=== PATIENT | female | born 1965 | race Caucasian/White ===

== ENCOUNTER 2022-01-07 11:15 | Outpatient (CLI) | payer BC, SELFPAY ==
--- NOTE | 2022-01-07 11:30 | CRLHL7_ITS ---
For Patients: As a result of the Century Cures Act, medical imaging exams and procedure reports are released immediately into your electronic medical record. You may view this report before your referring provider. If you have questions, please contact your health care provider. BILATERAL MAMMOGRAM WITH COMPUTER-AIDED DETECTION AND TOMOSYNTHESIS TECHNIQUE: CC and MLO views were obtained. These mammographic images have been obtained using full-field digital technique. These mammographic images were interpreted with the benefit of computer-aided detection. Breast Tomosynthesis was used in this interpretation. COMPARISON FILM: 09/26/2020 (3D), 01/04/2018 (2D), 11/14/2016 (2D). FINDINGS: There are scattered areas of fibroglandular density IMPRESSION: There is no radiographic evidence for malignancy. ASSESSMENT: BI-RADS Category 1: Negative RECOMMENDATION: Routine screening mammogram in 1 year. A lay language report of this examination will be provided to the patient. Heri Pal M.D. Diagnostic Radiologist [email or web address] GAYLA/jai Transcribed: 3:03 p.m. IRMA/Dictated by: Heri Pal MD @ 01/07/2022 3:05:00 PM (Electronically Signed)
== END 2022-01-07 11:16 | disposition home or self-care (01) ==
LOC: MAMMO 11:16
PROVIDERS: PCP Family Medicine; Visit Provider Family Medicine
DX: Z12.31 Encounter for screening mammogram for malignant neoplasm of breast (principal)
CPT/HCPCS: 77063; 77067

== ENCOUNTER 2022-12-20 12:39 | Outpatient (CLI) | payer BC, SELFPAY | END 2022-12-20 12:40 | disposition home or self-care (01) | LOC: NFLDREF 12-22 06:36 | PROVIDERS: PCP Family Medicine; Referring Provider Family Medicine; Visit Provider Family Medicine | DX: R30.0 Dysuria (principal); N39.0 Urinary tract infection, site not specified; F41.9 Anxiety disorder, unspecified | CPT/HCPCS: 87086 ==

== ENCOUNTER 2023-01-10 14:28 | Outpatient (CLI) | payer BC, SELFPAY | END 2023-01-10 14:29 | disposition home or self-care (01) | LOC: NFLDREF 14:29 | PROVIDERS: PCP Family Medicine; Visit Provider Physician Assistant | DX: Z01.419 Encounter for gynecological examination (general) (routine) without abnormal findings (principal); N94.9 Unspecified condition associated with female genital organs and menstrual cycle; Z12.4 Encounter for screening for malignant neoplasm of cervix | CPT/HCPCS: 87086 ==

== ENCOUNTER 2023-02-14 10:13 | Outpatient (CLI) | payer BC, SELFPAY | END 2023-02-14 10:14 | disposition home or self-care (01) | LOC: LKVREF 10:16 | PROVIDERS: PCP Family Medicine; Visit Provider Family Medicine | DX: Z01.818 Encounter for other preprocedural examination (principal); I26.92 Saddle embolus of pulmonary artery without acute cor pulmonale; I82.409 Acute embolism and thrombosis of unspecified deep veins of unspecified lower extremity | CPT/HCPCS: 80053 ==

== ENCOUNTER 2023-03-09 10:13 | Outpatient (CLI) | payer BC, SELFPAY ==
--- NOTE | 2023-03-09 10:15 | CRLHL7_ITS ---
For Patients: As a result of the Century Cures Act, medical imaging exams and procedure reports are released immediately into your electronic medical record. You may view this report before your referring provider. If you have questions, please contact your health care provider. BILATERAL SCREENING MAMMOGRAM WITH COMPUTER-AIDED DETECTION AND TOMOSYNTHESIS TECHNIQUE: CC and MLO views were obtained. These mammographic images have been obtained using full-field digital technique. These mammographic images were interpreted with the benefit of computer-aided detection. Breast Tomosynthesis was used in this interpretation. COMPARISON FILM: 01/07/22, 10/16/20, 01/04/18. FINDINGS: There are scattered areas of fibroglandular density IMPRESSION: There is no radiographic evidence for malignancy. ASSESSMENT: BI-RADS Category 1: Negative RECOMMENDATION: Routine screening mammogram in 1 year. A lay language report of this examination will be provided to the patient. Heri Pal M.D. Diagnostic Radiologist [email or web address] IRMA/Dictated by: Heri Pal MD @ 03/09/2023 12:21:00 PM (Electronically Signed)
== END 2023-03-09 10:14 | disposition home or self-care (01) ==
LOC: MAMMO 10:14
PROVIDERS: PCP Family Medicine; Visit Provider Family Medicine
DX: Z12.31 Encounter for screening mammogram for malignant neoplasm of breast (principal)
CPT/HCPCS: 77063; 77067

== ENCOUNTER 2024-04-16 14:30 | Outpatient (RCR) | payer BC, SELFPAY | END 2024-08-14 23:59 | disposition home or self-care (01) | PROVIDERS: PCP Family Medicine; Visit Provider Orthopaedic Surgery | DX: M17.12 Unilateral primary osteoarthritis, left knee (principal); Z96.652 Presence of left artificial knee joint; M25.562 Pain in left knee; Z74.09 Other reduced mobility; R53.1 Weakness; R26.9 Unspecified abnormalities of gait and mobility; Z51.89 Encounter for other specified aftercare | CPT/HCPCS: 97016; 97032; 97110; 97140; 97161 ==

== ENCOUNTER 2024-07-24 09:27 | Outpatient (CLI) | payer BC, SELFPAY | END 2024-07-24 09:28 | disposition home or self-care (01) | LOC: MAMMO 09:28 | PROVIDERS: PCP Family Medicine; Visit Provider Family Medicine | DX: Z12.31 Encounter for screening mammogram for malignant neoplasm of breast (principal) | CPT/HCPCS: 77063; 77067 ==

== ENCOUNTER 2024-08-16 08:05 | Outpatient (CLI) | payer BC, SELFPAY | END 2024-08-16 08:06 | disposition home or self-care (01) | LOC: NFLDREF 08-20 06:29 | PROVIDERS: PCP Family Medicine; Referring Provider Family Medicine; Visit Provider Family Medicine | DX: D64.9 Anemia, unspecified (principal); K22.70 Barrett's esophagus without dysplasia; K58.0 Irritable bowel syndrome with diarrhea; R25.2 Cramp and spasm; R53.83 Other fatigue; F41.9 Anxiety disorder, unspecified | CPT/HCPCS: 80053; 80061; 82306; 82607; 82728 ==

== ENCOUNTER 2024-10-22 12:47 | Outpatient (CLI) | payer BC, SELFPAY | END 2024-10-22 12:48 | disposition home or self-care (01) | PROVIDERS: PCP Family Medicine; Visit Provider Family Medicine | DX: D64.9 Anemia, unspecified (principal); Z13.21 Encounter for screening for nutritional disorder | CPT/HCPCS: 82607; 82728 ==

== ENCOUNTER 2024-10-28 19:03 | Emergency (ER) | payer BC, SELFPAY ==
--- OUTSIDE RECORDS SUMMARY | 2024-10-28 19:06 | XMS_ITS | Clinical Summary ---
Author Organization [place] Address [address] [place] [id number] Care Team Providers Care Math And Science Division Chair Name Role Phone Naty, Carmen Gurrola Primary Care Provider Allergies Active Allergy Reactions Criticality Noted Date Comments Erythromycin 11/12/2013 Medications apixaban ANTICOAGULANT (ELIQUIS) 2.5 MG tablet Take 2.5 mg by mouth 2 times daily Active Escitalopram Oxalate (LEXAPRO PO) Take 20 mg by mouth daily Active Pantoprazole Sodium (PROTONIX PO) Take by mouth 2 times daily Active Social History Tobacco Use Types Packs/Day Years Used Date Smoking Tobacco: Never Assessed Tobacco Cessation:Counseling Given: Yes Adolescent Education Answer Date Record ed Getting School Help Needed Not on file 04/01 Comments Unknown Sex and Gender Information Value Date Recorded Sex Assigned at Not on file Legal Sex Female 2:58 AM BUSINESS SEGMENT MANAGER Gender Identity Not on file Sexual Orientation Not on file Last Filed Vital Signs Vital Sign Reading Time Taken Comments Blood Pressure 122/68 10/17/2017 10:10 AM CDT Pulse - - Temperature 36.1 C (97 F) 11/12/2013 9:39 PM CDT Respiratory Rate 20 11/12/2013 9:39 PM CDT Oxygen Saturation 97% 11/13/2013 1:38 AM CDT Inhaled Oxygen Concentration - - Weight 102.1 kg (225 lb) 10/17/2017 10:10 AM CDT Height 167.6 cm (5' 6) 10/17/2017 10:10 AM CDT Body Mass Index 36.32 10/17/2017 10:10 AM CDT Plan of Treatment Not on file Insurance [facility] [place] [address] Care Teams Math And Science Division Chair Relationship Specialty Start Date End Date [address] [address] PCP - General 11/12/13
--- OUTSIDE RECORDS SUMMARY | 2024-10-28 19:06 | XMS_ITS | Clinical Summary ---
Author Organization [facility] Address [address] [place] [address] Care Team Providers Care Stock Plan Administrator Name Role Phone Elsewhere, Pcp Primary Care Provider Unavailabl e Source Comments Patient records contain information from all sites at [facility]. For routine questions regarding patient records, call [phone] during business hours, M-F 8:00 AM - 5:00 PM Central Time. Record requests for emergency care only can be directed to [phone] at any time.[facility] Allergies Active Allergy Reactions Criticality Noted Date Comments Adhesive Tape-Silicones Rash High 05/13/2016 [place] Oil Rash 01/27/2021 Health History questionnaire. Erythromycin Anaphylaxis High 05/13/2016 Ibuprofen GI intolerance High 04/05/2022 Levothyroxine Rash Medium 02/24/2020 Levothyroxine Sodium Hives (Reselect Reaction) High 04/05/2022 Nsaids (Non-Steroidal Anti-Inflammatory Drug) Other (see comments) 05/10/2021 H/o lyle-n-y gastric bypass. AVOID NSAIDs and aspirin due to risk of gastric and/or G-J anastomotic ulcers. If Maye must be on short course of NSAIDs or aspirin, use enteric coated if possible and use PPI // Ingrid Leyva RN, Bariatric Nurse Clinician, [facility] Weight Management 05/10/2021 Ondansetron Headache 05/14/2021 Medications ALPRAZolam (XANAX) 0.5 mg tablet Take 1 tablet by mouth daily as needed for anxiety. Anxiety. 08/17/2017 Active loperamide (IMODIUM A-D) 2 mg capsuleIndicati ons:Irritable Bowel Syndrome With Diarrhea TAKE 4 CAPSULES BY MOUTH DAILY NEEDED FOR DIARRHEA 360 capsule 3 05/04/2020 Active clonazePAM (KlonoPIN) 1 mg tablet Take 1 mg by mouth at bedtime. 04/06/2021 Active amphetamine-dex troamphetamine (ADDERALL XR) 10 mg 24 hr capsule as needed. 04/22/2022 Active Lexapro 20 mg tablet Take 20 mg by mouth at bedtime. 11/24/2022 Active omeprazole (PriLOSEC OTC) [address] tablet Take 20 mg by mouth every evening. 06/02/2023 Active apixaban (Eliquis) 2.5 mg tablet Take 1 tablet (2.5 mg total) by mouth 2 (two) times a day. 180 tablet 02/24/2024 Active acetaminophen (TylenoL) 500 mg tablet Take 2 tablets (1,000 mg total) by mouth every 6 (six) hours as needed for pain. 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 Reduced Eliquis dose to 2.5 mg bid in Jan 2018. Morbid Obesity Body Mass Index 40.0-44.9 Adult 0 03/21/2018 Irritable Bowel Syndrome With Diarrhea 8 Gastro-Esophageal Reflux Dis ease With Esophagitis Without Bleeding 03/20/2018 Overview (03/21/2018): EGD 2017: grade B esophagitis and gastric polyposis (fundic gland polyps without dysplasia) Anxiety 03/20/2018 Insomnia 03/20/2018 Polyp Gastric Personal History 03/20/2018 Overview (03/21/2018): Noted on EGD 2017. Biopsy showed fundic gland polyps without dysplasia. Normal duodenal and random colon biopsies. Anticoagulant Therapy 02/19/2018 Thrombosis Deep Vein Personal History 06/26/2011 Pain Wrist Left Pain Wrist Right Anxiety Generalized Disorder Gastroesophageal Reflux Disease NOS Immunizations Immunization Administration Dates Next Due H1N1 All Forms 06/18/2009 HepA Adult 12/24/1995,07/26/1995 HepB Adult 12/24/1995,08/23/1995,07/26/1995 Influenza Split 03/26/2017,04/26/2016 Influenza TIV (IM) 06/12/2014, 1,03/04/2010,2008 Influenza, Injectable, Quadrivalent 03/23/2019 Influenza, Seasonal, Injectable 04/03/2013,02/19 Influenza, Unspecified 03/15/2013,04/09/2012 RZV (SHINGRIX) 03/21/2018(Deferred: Not available from scale attendant) Td (Adult), adsorbed 01/30/2017(Deferred: Other) ,01/23/1996 Td Preservative Free (TENIVA C, DECAVAC) 06/12/2014 Tdap 08/29/2008 TyVi (inj) 12/29/2015 influenza vaccine quad (FLUZONE/FLUARIX) (6 months and older)(PF) 03/15/2016,04/16/2015 Family History Medical History Relation Name Comments Stroke Brother Jalil Downs ADD Daughter Flavia Valdivia Arthritis Father Norbert downs Clotting disorder Father Norbert downs Lucho william found my dad and he had a blood clot after a surgery Deep vein thrombosis Father Norbert downs One pos t cancer surgery, 1 with testosterone Lung cancer Father Norbert downs Skin cancer Father Norbert downs Breast cancer Maternal Grandmother Zaid ibarra Osteoporosis Maternal Grandmother Zaid ibarra Dowager s hump Thyroid disease Maternal Grandmother Zaid ibarra ADD Mother Raegan navarrete Anxiety disorder Mother Raegan navarrete On medicati on Osteoporosis Mother Raegan navarrete Many broken bon es and was on fosomax for over 9 years Skin cancer Mother Raegan navarrete Thyroid disease Mother Raegan navarrete Just recentl y Deep vein thrombosis Sister Half-si ster. During Relation Name Status Comments Brother Jalil Downs Daughter Flavia Valdivia Father Norbert downs Alive Maternal Grandmother Zaid ibarra Mother Raegan navarrete Sister Alive Social History Tobacco Use Types Packs/Day Years Used Date Smoking Tobacco: Never Passive Smoke Exposure: Never Smokeless Tobacco: Never Tobacco Cessation:Counseling Given: Not Answered Alcohol Use Standard Drinks/Week Comments Yes 2 (1 standard drink = 0.6 oz pur e alcohol) social; daily caffeine [facility] Utilities Answer Date Recorded In the past 12 months has e English TV, gas, oil, or water [employer] threatened to shut off services in your home? No 02/08/2024 Humiliation, Afraid, Rape, and Kick questionnair e Answer Date Recorded Within the last year, have y ou been afraid of your partner or ex-partner? No 02/08/2024 Within the last year, have y ou been humiliated or emotionally abused in other ways by your partner or ex-partner? No Within the last year, have y ou been kicked, hit, slapped, or otherwise physically hurt by your partner or ex-partner? No 02/08/2024 Within the last year, have y ou been raped or forced to have any kind of sexual activity by your partner or ex-partner? No 02/08/2024 Social Connection and Isolat ion Panel [NHANES] Answer Date Recorded In a typical week, how many times do you talk on the phone with family, friends, or neighbors? More than three times a week 09/12/2022 How often do you get togethe r with friends or relatives? Once a week 09/12/2022 How often do you attend chur or sabianist services? Never 09/12/2022 Do you belong to any clubs o r organizations such as denominational groups, unions, fraternal or athletic groups, or school groups? No 09/12/2022 How often do you attend meet ings of the clubs or organizations you belong to? Never 09/12/2022 Are you , , di vorced, , never , or living with a partner? 09/12/2022 AUDIT-C Answer Date Recorded Q1: How often do you have a drink containing alc ohol? Never 09/12/2022 Average Number of Drinks Not on file 023 Frequency of Binge Drinking Not on file 08/25 Overall Financial Resource Strain (CARDIA) Answe r Date Recorded How hard is it for you to pa y for the very basics like food, housing, medical care, and heating? Somewhat hard 09/12/2022 PHQ-2 Answer Date Recorded PHQ-2 Score 0 07/08/2019 [facility] - Occupational Stress Questionnaire Answer Date Recorded Do you feel stress - tense, restless, nervous, or anxious, or unable to sleep at night because your mind is troubled all the time - these days? Rather much 09/12/2022 Exercise Vital Sign Answer Date Recorde d On average, how many days pe r week do you engage in moderate to strenuous exercise (like a brisk walk)? 3 days 10/11/2023 On average, how many minutes do you engage in exercise at this level? 40 min 10/11/2023 Hunger Vital Sign Answer Date Recorded Within the past 12 months, y ou worried that your food would run out before you got the money to buy more. Never true 02/08/20 24 Within the past 12 months, t he food you bought just didn't last and you didn't have money to get more. Never true 02/08/2024 PRAPARE - Transportation Answer Date Re corded In the past 12 months, has l ack of transportation kept you from medical appointments or from getting medications? No 01/24 In the past 12 months, has l ack of transportation kept you from meetings, work, or from getting things needed for daily living? No 02/08/2024 Nutrition Answer Date Recorded On average, how many serving s of fruits and vegetables do you eat per day (serving size is equal to 1 cup or approximately the size of a tennis ball)? 0-2 10/11/2023 Dental Answer Date Recorded Dental: Regular Dentist Yes 08/22/19 Employment Answer Date Recorded Employment status Employed and actively working without restrictions 10/11/2023 Housing Stability Answer Date Recorded What is your living situation today? [facility] 02/08/2024 Education Answer Date Recorded What is the highest level of school you have completed or the highest degree you have received? Some college, no degree 01/23/2019 Comments No Sex and Gender Information Value Date Recorded Sex Assigned at Female 03/01/2022 9:50 AM CDT Legal Sex Female 11:37 PM CHANGE MANAGEMENT Gender Identity Female 06/16/2021 8:03 AM CHANGE MANAGEMENT Sexual Orientation Straight 03/01/2022 9: 50 AM CDT Last Filed Vital Signs Vital Sign Reading Time Taken Comments Blood Pressure 124/79 02/09/2024 11:35 AM CDT Pulse 66 02/09/2024 11:35 AM CDT Temperature 36.8 C (98.2 F) 02/09/2024 11:35 AM CDT Respiratory Rate 16 02/09/2024 11:3 5 AM CDT Oxygen Saturation 92% 02/09/2024 8:25 AM CDT Inhaled Oxygen Concentration - - Weight 75.2 kg (165 lb 12.6 oz) 024 10:36 AM CDT Height 163 cm (5' 4.17) 02/08/2024 10: 36 AM CDT Body Mass Index 28.3 02/08/2024 10:36 AM CDT Plan of Treatment Health Maintenance Due Date Last Done Comments CT Colonography 1963 Cologuard 1963 FIT 1963 Pneumococcal vaccine (50+ years) (1 of 1 - PCV) 2013 Mammogram 10/07/2021 10/07/2020 (Perf ormed elsewhere), 11/14/2016 (Performed elsewhere) Lipid (Cholesterol) Screening 03/21/2023 03/21/2018, 02/25/2016 (Performed elsewhere) RSV vaccine - (32-36 weeks) or 60+ years (1 - Risk 60-74 years 1-dose series) 2023 COVID-19 Vaccine ( - 2023- season) 2024 04/18/2023, 04/02/2022, 04/06/2021, Additional history exists Influenza Vaccine (#1) 2024 , 03/15/2022, 03/27/2021, Additional history exists Depression Screening (Annual PHQ-2) 06/26/2024 Colonoscopy 09/17/2025 09/18/2015 (Perf ormed elsewhere) Colorectal Cancer Screening 09/17/2025 Cervical/Vaginal Cancer Screening 01/10/2026 01/10/2023, 11/08/2018, 08/18/2015 (Performed elsewhere) Fasting Glucose for Diabetes Screening 02/08/2027 02/09/2024, 02/07/2024, 05/03/2022, Additional history exists DTaP,Tdap,and Td Vaccines (4 - Td or Tdap) 01/31/2029 01/31/2019, 06/12/2014, 08/29/2008, Additional history exists Hepatitis B Vaccines Completed 12/24/1995, 08/23/1995, 07/26/1995 HIV Screening Completed 01/24/2019 Hepatitis C Screening Completed 01/24/2019 Zoster Vaccines Completed 10/04/2021, 03/27/2021 IPV Vaccines Aged Out No longer eligi ble based on patient's age to complete this topic Medical Devices Implanted Type Area Bag Patcher Device Identifier Shelf Expiration Date Model / Serial / Lot Cmnt Bn Smp 20gm - [id number] Implanted:Qty: 1 on 02/08/2024 by Alexander Mcclendon M.D. at [facility] Bone Cement Left: Knee [place] 6188-1-0 01 / / Cmnt Bn Smp 40gm - [id number] Implanted:Qty: 1 on 02/08/2024 by Alexander Mcclendon M.D. at [facility] Bone Cement Left: Knee Lina 6191-1-0 01 / / Triathlon-Femor al Modular Peg - Angelo [id number] Implanted:Qty: 1 on 02/10/2017 Knee Implant Right: Other/Legacy - See Implant Description Lina Description:Device Manufactu rer - [place] Charles.. Body Location - Other. Right. Device Status Text - [id number] [id number]. Triathlon-Tibia l Baseplate [place] #3 - Angelo [id number] Implanted:Qty: 1 on 02/10/2017 Knee Implant Other/Legacy - See Implant Description [place] Description:Device Manufactu rer - [place] [employer].. Body Location - Other. Right. Device Status Text - KNEE [id number]. Triathlon-Femor al Cemented #4 Rt - Angelo [id number] Implanted:Qty: 1 on 02/10/2017 Knee Implant Other/Legacy - See Implant Description Lina Description:Device Manufactu rer - [place] [employer].. Body Location - Other. Right. Device Status Text - KNEE [id number]. Triathlon-Inser t X3 Tib 11mm #3 - Angelo [id number] Implanted:Qty: 1 on 02/10/2017 Knee Implant Other/Legacy - See Implant Description Lina Description:Device Manufactu rer - [place] [employer].. Body Location - Other. Right. Device Status Text - KNEE [id number]. Triathlon-[place] la Asymmetric X3 95o26ay - Angelo [id number] Implanted:Qty: 1 on 02/10/2017 Knee Implant Other/Legacy - See Implant Description [place] Description:Device Manufactu rer - Lina Charles.. Body Location - Other. Right. Device Status Text - [id number] [id number]. Peg Fix Trt Ss Distl Fem - [id number] Implanted:Qty: 1 on 02/08/2024 by Alexander Mcclendon M.D. at [facility] Knee Implant Left: Knee Lina 12/24/2028 5575-X-0 00 / / [id number] Bsplt Tib Trt Rt Lt Sz4 - [id number] Implanted:Qty: 1 on 02/08/2024 by Alexander Mcclendon M.D. at [facility] Knee Implant Left: Knee [place] 09/20/2028 5521-B-4 00 / / [id number] Ins Tib Trt Ps Sz4 12 - [id number] Implanted:Qty: 1 on 02/08/2024 by Alexander Mcclendon M.D. at [facility] Knee Implant Left: Knee [place] 03/07/2028 5532-G-4 12-E / / [id number] Kn Fem Trt Lt Cmnt Ps Sz-5 - [id number] Implanted:Qty: 1 on 02/08/2024 by Alexander Mcclendon M.D. at [facility] Knee Implant Left: Knee Lina 09/10/2028 5515-F-5 01 / / [id number] Pat Mko Asym 10x32 - [id number] Implanted:Qty: 1 on 02/08/2024 by Alexander Mcclendon M.D. at [facility] Knee Implant Left: Knee [place] 10/19/2028 5551-G-3 20-E / / [id number] Cement Bone Large - Angelo [id number] Implanted:Qty: 1 on 02/10/2017 [facility] Other Right: Knee Lina Description:Device Manufactu rer - Lina Charles.. Device Status Text - [id number]. Cement Bone Small - Angelo [id number] Implanted:Qty: 1 on 02/10/2017 [facility] Other Lina Description:Device Manufactu rer - [place] Charles.. Device Status Text - [id number]. Procedures Procedure Name Priority Date/Time Associated Diagnosis Comments BASIC METABOLIC PANEL, S/P Routine 02/09/2024 2:11 AM CDT HCV AB SCRN W/REFLEX TO HCV PCR, S Routine 01/24/2019 9:21 AM CDT Maintenance Health Adult HIV-1/-2 AG AND AB SCREEN, PLASMA Routine 01/24/2019 9:21 AM CDT Maintenance Health Adult LIPID PANEL, S Routine 03/21/2018 11:44 AM CDT General Medical Examination Adult from Last 3 Months or Most Recently Relevant to Health Maintenance Results * (ABNORMAL) Basic Metabolic Panel (02/09/2024 2:11 AM CDT) [facility] Potassium, S 4.7 3.6 - 5.2 mmol/L 02/09/2024 3:25 AM CDT DTL Sodium, S 139 135 - 145 mmol/L 02/09/2024 3:25 AM CDT DTL Chloride, S 105 98 - 107 mmol/L 02/09/2024 3:25 AM CDT DTL Bicarbonate, S 26 22 - 29 mmol/L 02/09/2024 3:25 AM CDT DTL Anion Gap 8 7 - 15 02/09/2024 3:25 AM CDT DTL BUN (Blood Urea Nitrogen), S 15 6 - 21 mg/dL 02/09/2024 3:25 AM CDT DTL Creatinine 0.67 0.59 - 1.04 mg/dL 02/09/2024 3:25 AM CDT DTL Estimated GFR (eGFR) >90 >=60 mL/min/BSA 02/09/2024 3:25 AM CDT DTL Comment: Estimated GFR calculated using the 2020 CKD_EPI creatinine equation. Calcium, Total, S 8.6(L) 8.8 - 10.2 mg/dL 02/09/2024 3:25 AM CDT DTL Glucose, S 152(H) 70 - 140 mg/dL 02/09/2024 3:25 AM CDT DTL Blood (Blood, Venous) 02/09/2024 2:11 AM CDT 02/09/2024 3:02 AM CDT us Max Loja M.D. LAB BLOOD ADD-ON Final Res ult Performing Organization Address City/[facility]/ZIP Co de Phone Number [facility] [address] [place] [address], [facility] [address] [place] [address] * HIV-1/-2 Ag and Ab Screen, Plasma (01/24/2019 9:21 AM CDT) [facility] HIV-1/-2 Ag and Ab Screen, P Negative Negative 01/24/2019 12:19 PM CDT Comment: Negative result does not rule out HIV infection. If exposure to HIV infection occurred <14 days ago, contact the laboratory to request addition of HIV-1 RNA detection / quantification test (HIVQN). Blood (Blood, Venous) 01/24/2019 9:21 AM CDT 01/24/2019 11:30 AM CDT us Carmen Buckley M.D. LAB MICROBIOLOGY - BLOOD ORDERAB LES Final Result [facility] [address] [place] [address] * HCV Ab Scrn w/Reflex to HCV PCR, Serum (01/24/2019 9:21 AM CDT) Pathologist [facility] HCV Ab Screen, S Negative Negative 01/24/2019 1:08 PM CDT Comment:Pcuwuw-me-iamrfp rat io is <1.00. Blood (Blood, Venous) 01/24/2019 9:21 AM CDT 01/24/2019 11:55 AM CDT us Carmen Buckley M.D. LAB MICROBIOLOGY - BLOOD ORDERAB LES Final Result [facility] [address] [place] [address] * Lipid Panel (03/21/2018 11:44 AM CDT) [facility] Cholesterol, Total 157 mg/dL 03/21/2018 12:55 PM CDT [facility] Comment: ----REFERENCE VALUE---- Desirable: < 200 Borderline high: 200 - 239 High: > or = 240 Triglycerides 68 mg/dL 03/21/2018 12:55 PM CDT [facility] Comment: ----REFERENCE VALUE---- Normal: <150 Borderline high: 150-199 High: 200-499 Very high: > or =500 Cholesterol, HDL, S 64 >=50 mg/dL 03/21/2018 12:55 PM CDT [facility] Calculated LDL 79 mg/dL 03/21/2018 12:55 PM CDT [facility] Comment: ----REFERENCE VALUE---- Desirable: <100 Above Desirable: 100-129 Borderline high: 130-159 High: 160-189 Very high: > or =190 Cholesterol, Non-HDL, Calculated 93 mg/dL 03/21/2018 12:55 PM CDT [facility] Comment: ----REFERENCE VALUE---- Desirable: <130 Above Desirable: 130-159 Borderline high: 160-189 High: 190-219 Very high: > or =220 Blood 03/21/2018 11:4 4 AM CDT 03/21/2018 11:59 AM CDT us Soft Results Interface LAB BLOOD ADD-ON Final Re sult [facility] [address] [place] [id number], [facility] from Last 3 Months or Most Recently Relevant to Health Maintenance Insurance [facility] Advance Directives For more information, please contact: [phone] * Full Code (Latest Code Status on File) Date Activated Date Inactivated Comments 02/08/2024 6:52 PM 02/09/2024 1:48 PM Question Answer Comments Full Code: Discussed Care Teams Stock Plan Administrator Relationship Specialty Start Date End Date Elsewhere, Pcp PCP - General Internal Medicine 05/10/24
--- OUTSIDE RECORDS SUMMARY | 2024-10-28 19:06 | XMS_ITS | Clinical Summary ---
Author Organization [facility] Address [address] [place] [id number] Care Team Providers Care Marine Pipefitter Name Role Phone Tremaine Harris MD Primary Care Provider Fidel Valdivia MD Unavailable [phone] Christiano Harris MD Unavailable Ingrid Sears RN Unavailable [phone] Unavailable Tiny Hercules NP Unavailable [phone] Allergies Active Allergy Reactions Criticality Noted Date Comments Adhesive Tape-Silicones Rash High 05/13/2016 Erythromycin Anaphylaxis High 11/12/2013 Levothyroxine Erythema Medium 02/24/2020 Nsaids (Non-Steroidal Anti-Inflammatory Drug) Other - Describe In Comment Field 05/10/2021 H/o ylle-n-y gastric bypass. AVOID NSAIDs and aspirin due to risk of gastric and/or G-J anastomotic ulcers. If Maye must be on short course of NSAIDs or aspirin, use enteric coated if possible and use PPI // Ingrid Leyva RN, Bariatric Nurse Clinician, [facility] 05/10/2021 Ondansetron Headache 05/14/2021 Medications escitalopram oxalate (LEXAPRO) 10 mg tablet Take 20 mg by mouth once daily. 0 Active acetaminophen (TYLENOL EXTRA STRGTH) 500 mg tablet Take 1,000 mg by mouth every 6 hours if needed. Max acetaminophen dose: 4000mg in 24 hrs. Active clonazePAM (KLONOPIN) 1 mg tablet Take 1 mg by mouth at bedtime. 1 Active Adderall XR 10 mg Extended-Relea se capsule Take 10 mg by mouth once daily if needed. 1 Active loperamide (IMODIUM) 2 mg capsule Take 10 mg (5 capsules) by mouth daily in the morning and 4-6 mg (2-3 capsules) in the evevning. Max 16 mg in 24 hrs. Active Eliquis 5 mg tablet Take 0.5 Tablets (2.5 mg) by mouth 2 times daily. 0 1 Active omeprazole (PriLOSEC) 20 mg Delayed-Releas e capsuleIndicat ions:Heartburn Take 1 Capsule (20 mg) by mouth 2 times daily before meals. 60 Capsule 2 2 Active lactulose 10 gram/15 mL solutionIndica tions:Chronic diarrhea Take 15 mL (10 g) by mouth once daily. 15 mL 4 Active Active Problems Problem Noted Date Diagnosed Date Osteoporosis 05/30/2022 Overview (05/30/2022): Initial bone density exam 05/2022 Lumbar T score -2.8 left femoral neck -2.3 Right femoral neck -2.0 Left total hip -2.4 Right total hip -1.8 S/P laparoscopic hiatal rosa ia repair with lyel-en-y reconstruction 05/05/2021 Overview (05/05/2021): Dr. Valdivia and Dr. Harris Hiatal hernia 05/05/2021 Family History Medical History Relation Name Comments Hypertension Maternal Grandmother Obesity Maternal Grandmother Anxiety disorder Mother Hypertension Mother Relation Name Status Comments Maternal Grandmother Mother Social History Tobacco Use Types Packs/Day Years Used Date Smoking Tobacco: Never Smokeless Tobacco: Never Alcohol Use Standard Drinks/Week Comments Yes 0 (1 standard drink = 0.6 oz pur e alcohol) rare PHQ-2 Answer Date Recorded PHQ-2 TOTAL SCORE 0 05/16/2023 Social Connections Answer Date Recorded Do you often feel lonely or isolated from those around you? 0 11/21/2023 Financial Resource Strain Answer Date R ecorded Difficulty of Paying Living Expenses 3 11/21/2023 Difficulty of Paying Living Expenses Not on file 11/21/2023 Food Insecurity Answer Date Recorded Do you worry your food will run out before you are able to buy more? 1 11/21/2023 Transportation Needs Answer Date Record ed Does lack of transportation keep you from medica l appointments? 1 11/21/2023 Does lack of transportation keep you from work, meetings or getting things that you need? 1 11/21/2023 Housing Stability Answer Date Recorded What is your housing situation today? 1 11/21/2023 Utilities Answer Date Recorded Do you have trouble paying f or utilities (for example, heat, electricity, water, phone)? 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[employer] Gender Identity Not on file Sexual Orientation Not on file Occupation Industry Job Start Date Job End Date patient owns a buisness Not on file Not on file Not on file Obstetrics History Last Filed Vital Signs Vital Sign Reading Time Taken Comments Blood Pressure 90/58 11/22/2023 11:04 AM CDT Pulse 60 11/22/2023 11:04 AM CDT Temperature 37 C (98.6 F) 02/07/2022 10:28 AM CDT Respiratory Rate 20 05/03/2022 10:05 AM [employer] Oxygen Saturation 94% 02/07/2022 10:30 AM CDT Inhaled Oxygen Concentration - - Weight 75.8 kg (167 lb) 04/30/2024 11:00 AM [employer] Height 167.6 cm (5' 5.98) 04/30/2024 11:[address] Body Mass Index 26.97 04/30/2024 11:00 AM [employer] Plan of Treatment Health Maintenance Due Date Last Done Comments Tdap 1974 HIV for age 15-65 1978 Hepatitis C screening for ag e 18-79 1981 Tetanus booster 1983 Colonoscopy through age 75 2008 Lipids for age 45-75 2008 Mammogram for age 45-75 2008 Pneumococcal series for age 50+ (1 of 1 - PCV) 2013 Zoster (shingles) series for age 50+ (1 of 2) 2013 RSV vaccine for adults or (1 - Risk 60-74 years 1-dose series) 2023 Depression screening for age 12+ 05/16/2024 05/16/20 Influenza Vaccine (Season Ended) 2025 BMI (ht and wt on same day) for age 18+ 04/30/2025 04/30/2024, 11/22/2023, 05/16/2023, Additional history exists Pap test for age 21-65 01/10/2026 , 01/10/2023, 11/08/2018, Additional history exists COVID-19 vaccine series Completed 03/20/20 24, 04/18/2023, 04/02/2022, Additional history exists Procedures Procedure Name Priority Date/Time Associated Diagnosis Comments HPV HIGH RISK Routine 01/10/2023 12:00 PM CDT from Last 3 Months or Most Recently Relevant to Health Maintenance Results * HPV HIGH RISK (01/10/2023 12:00 PM CDT) TYPE 16 Negative Negative 01/19/2023 1:50 PM CDT [facility] TYPE 18 Negative Negative 01/19/2023 1:50 PM CDT [facility] OTHER HIGH RISK TYPES Negative Negative 01/19/2023 1:50 PM CDT [facility] Other (Cervical/Vagina l) 01/10/2023 12:00 PM CDT 01/18/2023 11:39 AM CDT Narrative [facility] - 01/19/2023 1:50 PM CDT HPV types 16, 18, 31, 33, 35, 39, 45, 51, 52, 56, 58, 59, 66 and 68 DNA were undetectable or below the pre-set threshold. Methodology: Breeze Zabrina 4800 HPV Test september Lila [facility] Final Resu lt [facility] [address] [place] [address], from Last 3 Months or Most Recently Relevant to Health Maintenance Insurance [facility] Advance Directives * Full Code (Latest Code Status on File) Date Activated Date Inactivated Comments 05/05/2021 11:22 AM 05/10/2021 1:46 PM Question Answer Comments Code Status Discussion: Not Discussed * Full Code Date Activated Date Inactivated Comments 09/08/2020 7:04 AM 09/08/2020 11:22 AM Question Answer Comments Code Status Discussion: Not Discussed * Full Code Date Activated Date Inactivated Comments 06/09/2020 11:59 AM 06/09/2020 4:47 PM Question Answer Comments Code Status Discussion: Not Discussed * Full Code Date Activated Date Inactivated Comments 04/03/2020 10:41 AM 04/03/2020 2:50 PM Question Answer Comments Code Status Discussion: Not Discussed Care Teams Marine Pipefitter Relationship Specialty Start Date End Date Tremaine Harris MD [address] [place] [address] PCP - General Family Practice 02/14/20 Fidel Valdivia MD [address] [address] General Surgery Surgery - General 01/27/21 Christiano Harris MD [address] [place] [address] [phone] Consulting Physician Surgery - General 01/27/21 Ingrid Sears RN [address] [place] [address] [phone] Registered Nurse Registered Nurse 01/27/[address] [place] [address] [phone] Registered Dietitian Pet Care Worker 01/27/21 Tiny Hercules SENIOR NET DEVELOPER ARCHITECT [address] [place] [address] [phone] Nurse Practitioner - Family 05/16/23
[2024-10-28 19:11] VITALS: BP 122/72; PULSE 72; RESP 18; TEMP 36.7; O2SAT 92; BMI 27.0
--- NOTE | 2024-10-28 19:25 | ED.EYEPROB ---
HPI - Eye Problem General Time Seen by Provider: 19:04 Date Seen: 10/28/24 Chief complaint: Eye Problems Stated complaint: Allergic reaction to medication Time Seen by Provider: 10/28/24 19:04 Source: patient and RN notes reviewed Mode of arrival: ambulatory Limitations: no limitations History of Present Illness HPI Narrative: this 59-year-old female is coming in with bilateral eye pain. She had an outpatient orthopedic surgery under propofol fall today, had procedure done on her left thumb for arthritis, had an injection in her right thumb. She does wear contacts but did not wear them this morning, her eyes were fine this morning prior to the surgery. When she woke up from the procedure, she states both her eyes were hurting. They keep watering. She cannot say that her vision is or isn't normal because her eyes continue watering. She states her nose is running. She contacted the surgical center, they told her to be evaluated as she could have rubbed her eyes or traumatize the corneas when coming out of anesthesia. MD chief complaint: eye pain Related Data Home Medications ?Medication ?Instructions ?Recorded ?Confirmed acetaminophen 500 mg tablet 1,000 mg PO Q6H PRN 12/21/21 10/22/24 omeprazole [Prilosec] PO QDAY 05/23/22 10/22/24 apixaban 2.5 mg tablet (Eliquis) 2.5 mg PO BID 03/21/24 10/22/24 Previous Rx's ?Medication ?Instructions ?Recorded alprazolam 0.5 mg tablet 0.5 mg PO QDAY PRN anxiety #30 tabs 08/09/24 clonazepam 1 mg tablet 1 mg PO .HS PRN anxiety #90 tabs 08/09/24 loperamide 2 mg capsule 12 mg (6 x 2 mg) PO QDAY PRN loose 08/09/24 stool #210 caps omeprazole 20 mg capsule,delayed 20 mg PO QDAY #90 caps 08/09/24 release silver sulfadiazine 1 % topical 1 applic topical BID #50 grams 08/09/24 cream (Silvadene) triamcinolone acetonide 0.1 % 1 applic topical BID PRN rash #80 08/09/24 topical cream grams amoxicillin 500 mg tablet 1,000 mg (2 x 500 mg) PO ONCE #20 08/12/24 tabs dextroamphetamine-amphetamine ER 10 mg PO QAM #90 caps 10/22/24 10 mg 24hr capsule,extend release (Adderall XR) escitalopram oxalate 20 mg tablet 20 mg PO QDAY #90 tabs 10/22/24 (Lexapro) Allergies Allergy/AdvReac Type Severity Reaction Status Date / Time adhesive Allergy Intermediate rash Verified 10/22/24 12:02 levothyroxine sodium Allergy Intermediate Hives Verified 10/22/24 12:02 erythromycin base Allergy Verified 10/22/24 12:02 ibuprofen AdvReac Intermediate Gastrointestinal Verified 10/22/24 12:02 Upset almond AdvReac Verified 10/22/24 12:02 Review of Systems Narrative: As per HPI. [facility] Medical History Deep vein thrombosis ?I82.409 - Acute embolism and thrombosis of unspecified deep veins of unspecified lower extremity (ICD-10) Saddle embolus of pulmonary artery ?I26.92 - Saddle embolus of pulmonary artery without acute cor pulmonale (ICD-10) Pulmonary embolism ?I26.99 - Other pulmonary embolism without acute cor pulmonale (ICD-10) Insomnia ?G47.00 - Insomnia, unspecified (ICD-10) Anxiety ?F41.9 - Anxiety disorder, unspecified (ICD-10) Surgical History History of eyelid surgery ?Z98.890 - Other specified postprocedural states (ICD-10) History of knee replacement procedure of right knee ?Z96.651 - Presence of right artificial knee joint (ICD-10) History of repair of hiatal hernia (05/05/21) ?Z98.890 - Other specified postprocedural states (ICD-10) ?Z87.19 - Personal history of other diseases of the digestive system (ICD-10) History of gastric bypass ?Z98.84 - Bariatric surgery status (ICD-10) Family History Mother High blood pressure 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 . Nonsmoker. Occasional alcohol use. What is your current living situation?: I presently have a place to live Problems where you live: no known problems How hard is it for you to pay for the very basics like food, housing, medical care, and heating: not very hard In the past 12 mos, have been you worried that your food would run out before you had money to buy more?: never true In the past 12 mos, the food you bought just didn't last and you didn't have money to buy more?: never true Smoking Status: Never smoker How often do you have a drink containing alcohol: never AUDIT-C Alcohol total score: 0 Non-prescribed substance use: denies use How often does anyone, including family, friends and others, physically hurt you: never How often does anyone, including family, friends and others, insult or talk down to you: never How often does anyone, including family, friends and others, threaten you with harm: never How often does anyone, including family, friends and others, scream or curse at you: never Exam Const: Vital Signs, click to edit/add: Vital Signs - 24 hr 10/28/24 19:11 Temperature 98.1 F Pulse Rate [Pulse Oximeter] 72 Respiratory Rate 18 Blood Pressure [Ri ght Upper Arm] 122/72 Pulse Oximetry 92 Oxygen Delivery Me thod Room Air This 59-year-old female is alert, interactive, no apparent distress. Her left thumb an arm are splinted, she is in an arm sling. Both of her eyes are tearing, sclera with some vascularity but no ciliary flush. No periorbital swelling or erythema. Face atraumatic. She was given 2 drops of tetracaine in each eye with resolution of her pain. Prior to putting the tetracaine in, she did not want to keep her eyes open, she wanted to close them and they were tearing clear fluid. Fluorescein was applied, with Wood's light, she has uptake on a small band that is symmetric on both lower corneas. Documenting provider has reviewed patient's vital signs: yes Course Course ED Course: Her pharmacy is closed at this time, will send to her with gentamicin 0.3% ophthalmic from [place] kit. We do not have any way to get her eyedrops at this time from pharmacy. Discussed with her that I think it is more likely that her eyes may have been slightly open and the inferior portion of the corneas dried. It is possible she could have rubbed the each eye in the same portion but it really is a slit across both bottom corneas in a small band that would have the appearance of her eyes being just ever so slightly open and the corneas drying in the same distribution. Vital Signs Vital signs: Initial Vital Signs Temperature 98.1 F 10/28/24 19:11 Temperature Source Temporal Artery Scan 10/28/24 19:11 Pulse Rate 72 10/28/24 19:11 Respiratory Rate 18 10/28/24 19:11 Blood Pressure 122/72 10/28/24 19:11 Blood Pressure Mean 88 10/28/24 19:11 Blood Pressure Position Sitting 10/28/24 19:11 Pulse Oximetry 92 10/28/24 19:11 Oxygen Delivery Method Room Air 10/28/24 19:11 Vital Signs Temperature 98.1 F 10/28/24 19:11 Pulse Rate 72 10/28/24 19:11 Respiratory Rate 18 10/28/24 19:11 Blood Pressure 122/72 10/28/24 19:11 Pulse Oximetry 92 10/28/24 19:11 Oxygen Delivery Method Room Air 10/28/24 19:11 Temperature 98.1 F 10/28/24 19:11 Pulse Rate 72 10/28/24 19:11 Respiratory Rate 18 10/28/24 19:11 Blood Pressure 122/72 10/28/24 19:11 Pulse Oximetry 92 10/28/24 19:11 Oxygen Delivery Method Room Air 10/28/24 19:11 Medications Administered Medications: Generic Name Dose Route Start Last Admin Trade Name Freq PRN Reason Stop Dose Admin Fluorescein Sodium 1 strip 10/28/24 19:25 10/28/24 19:27 Fluorescein Sodium Topical Strip EYE-BOTH 10/28/24 19:26 1 strip ONCE ONE Administration Gentamicin Sulfate 1 drop 10/28/24 21:00 10/28/24 19:27 Gentamicin 0.3% Ophth EYE-BOTH 1 drop TID BERNARD Administration Tetracaine HCl 2 drop 10/28/24 19:25 10/28/24 19:27 Tetracaine 0.5% Ophth EYE-BOTH 10/28/24 19:26 2 drop ONCE ONE Administration Discharge Plan Discharge Clinical Impression: Corneal irritation of both eyes Patient Disposition: Home, Self-Care Condition: Stable Instructions: Corneal Abrasion (ED) Additional Instructions: use the gentamicin eyedrops as prescribed, 2 drops both eyes 4 times a day for the next couple of days. If your eyes are not 50% improved or better by tomorrow, do recommend calling your eye doctor for re-evaluation. Can do Tylenol and oxycodone as outlined by your surgeon. The should be sufficient pain medications for eye irritation as well. I do wonder if your eyes might have just been slightly open and dried out along the cornea, both inferior corneas have a small slit across the bottom where there is fluorescein uptake. This would suggest irritation or even possible abrasion to both corneas. However, given that they both are staining in the exact same area, think that her eyes may have just been minimally open during the procedure. Prescriptions: No Action omeprazole [Prilosec] PO QDAY Eliquis 2.5 mg tablet 2.5 mg PO BID alprazolam 0.5 mg tablet 0.5 mg PO QDAY PRN (Reason: anxiety) Qty: 30 1RF clonazepam 1 mg tablet 1 mg PO .HS MDD 1 mg PRN (Reason: anxiety) Qty: 90 1RF loperamide 2 mg capsule 12 mg PO QDAY PRN (Reason: loose stool) Qty: 210 12RF Rx Instructions: take 5 capsules each morning and 2 capsules each evening omeprazole 20 mg capsule,delayed release(DR/EC) 20 mg PO QDAY Qty: 90 3RF silver sulfadiazine [Silvadene] 1 % cream 1 applic topical BID Qty: 50 0RF Rx Instructions: apply a 1.5 mm thickness triamcinolone acetonide 0.1 % cream 1 applic topical BID PRN (Reason: rash) Qty: 80 0RF dextroamphetamine-amphetamine [Adderall XR] 10 mg capsule,extended release 24hr 10 mg PO QAM Qty: 90 0RF Rx Instructions: fill after 10/30/24 escitalopram oxalate [Lexapro] 20 mg tablet 20 mg PO QDAY Qty: 90 3RF acetaminophen 500 mg tablet 1,000 mg PO Q6H PRN amoxicillin 500 mg tablet 1,000 mg PO ONCE Qty: 20 0RF Follow Up/Referrals: Tremiane Harris MD [Primary Care Provider] - Stand Alone Forms: [employer] Info Instructions
[2024-10-28] MEDS: FLUORESCEIN SODIUM TOPICAL STRIP 1 STRIP EYE-BOTH (19:27)
[2024-10-28] MEDS: TETRACAINE 0.5% OPHTH 2 DROP EYE-BOTH (19:27)
[2024-10-28] MEDS: GENTAMICIN 0.3% OPHTH 1 DROP EYE-BOTH (19:27)
--- OUTSIDE RECORDS SUMMARY | 2024-10-28 19:33 | XMS_ITS | Clinical Summary ---
Author Organization [facility] Address [address] [place] [address] Care Team Providers Care Paper Steamer Name Role Phone Elsewhere, Pcp Primary Care Provider Unavailabl e Source Comments Patient records contain information from all sites at [facility]. For routine questions regarding patient records, call [phone] during business hours, M-F 8:00 AM - 5:00 PM Central Time. Record requests for emergency care only can be directed to [phone] at any time.[facility] Allergies Active Allergy Reactions Criticality Noted Date Comments Adhesive Tape-Silicones Rash High 05/13/2016 [place] Oil Rash 01/27/2021 Health History questionnaire. Erythromycin [...] // Ingrid Leyva RN, Bariatric Nurse Clinician, [facility] 05/10/2021 Ondansetron Headache 05/14/2021 Medications [...] 03/15/2013,04/09/2012 RZV (SHINGRIX) 03/21/2018(Deferred: Not available from machine maintenance supervisor) Td (Adult), adsorbed 01/30/2017(Deferred: Other) ,01/23/1996 Td [...] for over 9 years Skin cancer Mother Raegna navarrete Thyroid disease Mother Raegan navarrete Just [...] oz pur e alcohol) social; daily caffeine [facility] Utilities Answer Date Recorded In the past 12 months has e [employer], gas, oil, or water [employer] threatened to shut off services in your [...] How often do you attend chur or buddhism services? Never 09/12/2022 Do you belong to any clubs o r organizations such as buddhist groups, unions, fraternal or athletic groups, or [...] Answer Date Recorded PHQ-2 Score 0 07/08/2019 [facility] [place] of Occupat ional Health - Occupational Stress [...] your living situation today? I have a [facility] place to live 02/08/2024 Education Answer Date Recorded What is the highest level of school you have completed or the highest degree you have received? Some college, no degree 01/23/2019 Comments No Sex and Gender Information Value Date Recorded Sex Assigned at Female 03/01/2022 9:50 AM CDT Legal Sex Female 11:37 PM ART CONSERVATOR Gender Identity Female 06/16/2021 8:03 AM ART CONSERVATOR Sexual Orientation Straight 03/01/2022 9: 50 AM [...] this topic Medical Devices Implanted Type Area Ice Cream Freezer Helper Device Identifier Shelf Expiration Date Model / Serial / Lot Cmnt Bn Smp 20gm - [id number] Implanted:Qty: 1 on 02/08/2024 by Alexander Mcclendon M.D. at [facility] Bone Cement Left: Knee [place] 6188-1-0 01 / / Cmnt Bn Smp 40gm - [id number] Implanted:Qty: 1 on 02/08/2024 by Alexander Mcclendon M.D. at [facility] Bone Cement Left: Knee Lina 6191-1-0 01 / / Triathlon-Femor al Modular Peg - [id number] Implanted:Qty: 1 on 02/10/2017 Knee Implant Right: Other/Legacy - See Implant Description Lina Description:Device Manufactu rer - [place] [employer].. Body Location - Other. Right. Device Status Text - [id number] [id number]. Triathlon-Tibia l Baseplate [place] #3 - Angelo [id number] Implanted:Qty: 1 on 02/10/2017 Knee Implant Other/Legacy - See Implant Description [place] Description:Device Manufactu rer - [place] [employer].. Body Location - Other. Right. Device Status Text - KNEE [id number]. Triathlon-Femor al Cemented #4 Rt - Angelo [id number] Implanted:Qty: 1 on 02/10/2017 Knee Implant Other/Legacy - See Implant Description Lina Description:Device Manufactu rer - [place] [employer].. Body Location - Other. Right. Device Status Text - KNEE [id number]. Triathlon-Inser t X3 Tib 11mm #3 - [id number] [id number] Implanted:Qty: 1 on 02/10/2017 Knee Implant Other/Legacy - See Implant Description Lina Description:Device Manufactu rer - [place] [employer].. Body Location - Other. Right. Device Status Text - KNEE [id number]. Triathlon-[place] la Asymmetric X3 [id number] - [id number] [id number] Implanted:Qty: 1 on 02/10/2017 Knee Implant Other/Legacy - See Implant Description [place] Description:Device Manufactu rer - Lina Charles.. Body Location - Other. Right. Device Status Text - KNEE [id number]. Peg Fix Trt Ss Distl Fem - [id number] Implanted:Qty: 1 on 02/08/2024 by Alexander Mcclendon M.D. at [facility] Knee Implant Left: Knee Lina 12/24/2028 5575-X-0 00 / / [id number] Bsplt Tib Trt Rt Lt Sz4 - [id number] Implanted:Qty: 1 on 02/08/2024 by Alexander Mcclendon M.D. at [facility] Knee Implant Left: Knee [place] 09/20/2028 5521-B-4 00 / / [id number] Ins Tib Trt Ps Sz4 12 - [id number] Implanted:Qty: 1 on 02/08/2024 by Alexander Mcclendon M.D. at [facility] Knee Implant Left: Knee [place] 03/07/2028 5532-G-4 12-E / / [id number] Kn Fem Trt Lt Cmnt Ps Sz-5 - [id number] Implanted:Qty: 1 on 02/08/2024 by Alexander Mcclendon M.D. at [facility] Knee Implant Left: Knee Lina 09/10/2028 5515-F-5 01 / / [id number] Pat Mko Asym 10x32 - [id number] Implanted:Qty: 1 on 02/08/2024 by Alexander Mcclendon M.D. at [facility] Knee Implant Left: Knee [place] 10/19/2028 5551-G-3 20-E / / [id number] Cement Bone Large - Angelo [id number] Implanted:Qty: 1 on 02/10/2017 [facility] Other Right: Knee Lina Description:Device Manufactu rer - Lina Charles.. Device Status Text - [id number]. Cement Bone Small - Angelo [id number] Implanted:Qty: 1 on 02/10/2017 [facility] Other Lina Description:Device Manufactu rer - [place] Charles.. Device Status Text - [id number]. Procedures [...] Basic Metabolic Panel (02/09/2024 2:11 AM CDT) [facility] Potassium, S 4.7 3.6 - 5.2 mmol/L [...] ADD-ON Final Res ult Performing Organization Address City/[facility]/ZIP Co de Phone Number [facility] [address] [place] [address], [facility] [address] [place] [address] * HIV-1/-2 Ag and Ab Screen, Plasma (01/24/2019 9:21 AM CDT) [facility] HIV-1/-2 Ag and Ab Screen, P Negative [...] LES Final Result [facility] [address] [place] [address] * HCV Ab Scrn w/Reflex to HCV PCR, Serum (01/24/2019 9:21 AM CDT) Pathologist [facility] HCV Ab Screen, S Negative Negative 01/24/2019 1:08 PM CDT Comment:Vjirbe-mz-gbugra rat io is <1.00. Blood (Blood, Venous) 01/24/2019 9:21 AM CDT 01/24/2019 11:55 AM CDT us Carmen Buckley M.D. LAB MICROBIOLOGY - BLOOD ORDERAB LES Final Result [facility] [address] [place] [address] * Lipid Panel (03/21/2018 11:44 AM CDT) [facility] Cholesterol, Total 157 mg/dL 03/21/2018 12:55 PM CDT [facility] Comment: ----REFERENCE VALUE---- Desirable: < 200 Borderline high: 200 - 239 High: > or = 240 Triglycerides 68 mg/dL 03/21/2018 12:55 PM CDT [facility] Comment: ----REFERENCE VALUE---- Normal: <150 Borderline high: 150-199 High: 200-499 Very high: > or =500 Cholesterol, HDL, S 64 >=50 mg/dL 03/21/2018 12:55 PM CDT [facility] Calculated LDL 79 mg/dL 03/21/2018 12:55 PM CDT [facility] Comment: ----REFERENCE VALUE---- Desirable: <100 Above Desirable: 100-129 Borderline high: 130-159 High: 160-189 Very high: > or =190 Cholesterol, Non-HDL, Calculated 93 mg/dL 03/21/2018 12:55 PM CDT [facility] Comment: ----REFERENCE VALUE---- Desirable: <130 Above Desirable: 130-159 Borderline high: 160-189 High: 190-219 Very high: > or =220 Blood 03/21/2018 11:4 4 AM CDT 03/21/2018 11:59 AM CDT us Soft Results Interface LAB BLOOD ADD-ON Final Re sult [facility] [address] [place] [id number], [facility] from Last 3 Months or Most Recently Relevant to Health Maintenance Insurance [facility] Advance Directives For more information, please contact: [phone] * Full Code (Latest Code Status on File) Date Activated Date Inactivated Comments 02/08/2024 6:52 PM 02/09/2024 1:48 PM Question Answer Comments Full Code: Discussed Care Teams Paper Steamer Relationship Specialty Start Date End Date Elsewhere, Pcp PCP - General Internal Medicine 05/10/24
--- OUTSIDE RECORDS SUMMARY | 2024-10-28 19:33 | XMS_ITS | Clinical Summary ---
Author Organization [employer] [facility] Address [address] [place] [address] Care Team Providers Care Therapy Manager Name Role Phone Tremaine Harris MD Primary Care Provider [phone] Fidel Valdivia MD Unavailable [phone] Christiano Harris MD Unavailable Ingrid Sears RN Unavailable [phone] Unavailable Tiny Hercules NP Unavailable [phone] Allergies Active Allergy Reactions Criticality Noted Date Comments Adhesive Tape-Silicones Rash High 05/13/2016 Erythromycin Anaphylaxis High 11/12/2013 Levothyroxine Erythema Medium 02/24/2020 Nsaids (Non-Steroidal Anti-Inflammatory Drug) Other - Describe In Comment Field 05/10/2021 H/o lyle-n-y gastric bypass. AVOID NSAIDs and aspirin due to risk of gastric and/or G-J anastomotic ulcers. If Maye must be on short course of NSAIDs or aspirin, use enteric coated if possible and use PPI // Ingrid Leyva RN, Bariatric Nurse Clinician, [facility] 05/10/2021 Ondansetron Headache 05/14/2021 [...] S/P laparoscopic hiatal rosa ia repair with lyle-en-y reconstruction 05/05/2021 Overview (05/05/2021): Dr. Valdivia and [...] on file Legal Sex Female 1:01 PM FIELD CROP GROWER Gender Identity Not on file Sexual Orientation [...] CDT Respiratory Rate 20 05/03/2022 10:05 AM FIELD CROP GROWER Oxygen Saturation 94% 02/07/2022 10:30 AM CDT Inhaled Oxygen Concentration - - Weight 75.8 kg (167 lb) 04/30/2024 11:00 AM FIELD CROP GROWER Height 167.6 cm (5' 5.98) 04/30/2024 11:[address] Body Mass Index 26.97 04/30/2024 11:00 AM FIELD CROP GROWER Plan of Treatment Health Maintenance Due Date [...] 16 Negative Negative 01/19/2023 1:50 PM CDT [facility] TYPE 18 Negative Negative 01/19/2023 1:50 PM CDT [facility] OTHER HIGH RISK TYPES Negative Negative 01/19/2023 1:50 PM CDT [facility] Other (Cervical/Vagina l) 01/10/2023 12:00 PM CDT 01/18/2023 11:39 AM CDT Narrative [facility] - 01/19/2023 1:50 PM CDT HPV types 16, 18, 31, 33, 35, 39, 45, 51, 52, 56, 58, 59, 66 and 68 DNA were undetectable or below the pre-set threshold. Methodology: [employer] Zabrina 4800 HPV Test september Lila [facility] Final Resu lt [facility] [address] [place] [address], from Last 3 Months or Most Recently Relevant to Health Maintenance Insurance [facility] Advance Directives * Full Code (Latest Code [...] Code Status Discussion: Not Discussed Care Teams Therapy Manager Relationship Specialty Start Date End Date Tremaine Harris MD [address] [place] [address] PCP - General Family Practice 02/14/20 Fidel Valdivia MD [address] [address] General Surgery Surgery - General 01/27/21 Christiano Harris MD [address] [place] [address] [phone] Consulting Physician Surgery - General 01/27/21 Ingrid Sears RN [address] [place] [address] [phone] Registered Nurse Registered Nurse 01/27/[address] [place] [address] [phone] Registered Dietitian Sr. Strategic Sourcing Manager 01/27/21 Tiny Hercules DISASTER RECOVERY SPECIALIST [address] [place] [address] [phone] Nurse Practitioner - Family 05/16/23
--- OUTSIDE RECORDS SUMMARY | 2024-10-28 19:33 | XMS_ITS | Clinical Summary ---
Author Organization [facility] Address [address] [place] [address] Care Team Providers Care Rnfa Name Role Phone Naty, Carmen Gurrola Primary [...] on file Legal Sex Female 2:58 AM STRUCTURER Gender Identity Not on file Sexual Orientation [...] Plan of Treatment Not on file Insurance [facility] Care Teams Rnfa Relationship Specialty Start Date End Date [address] [address] PCP - General 11/12/13
== END 2024-10-28 19:44 | disposition home or self-care (01) ==
PROVIDERS: Emergency Provider Family Medicine; PCP Family Medicine
DX: H18.893 Other specified disorders of cornea, bilateral (principal)
CPT/HCPCS: 99282; 99283; A9270

== ENCOUNTER 2025-04-01 13:36 | Outpatient (CLI) | payer BC, SELFPAY | END 2025-04-01 13:37 | disposition home or self-care (01) | PROVIDERS: PCP Family Medicine; Visit Provider Family Medicine | DX: D64.9 Anemia, unspecified (principal); I82.409 Acute embolism and thrombosis of unspecified deep veins of unspecified lower extremity | CPT/HCPCS: 80053; 82728; 83540 ==